=== PATIENT | male | born 1985 | race American Indian/Alaskan Native ===

== ENCOUNTER 2017-06-11 21:14 | Emergency (ER) | payer SELFPAY ==
[2017-06-11 21:53] VITALS: BP 125/77; PULSE 85; RESP 20; TEMP 98.2; O2SAT 97
--- NOTE | 2017-06-11 22:43 | C.PDOC ---
History Of Present Illness 32 yo male w/o significant PMHx come in for evaluation of Left shoulder and upper back pain gradually developed for past few hours after sustained mechanical fall at work. Pt sts, slipped and fell , landed onto left side. Pt describes apin as localized over left superior shoulder extends down to Left upper back. Otherwise, pt denies head injury, LOC, syncope, headache, dizziness , CP, SOB, dyspnea, diaphoresis, abd. pain, N/V, denies deformity, weakness, sensory or vascular deficits to B/L UEs and LEs. Ambulate to ED for evaluation, not in any apparent distress. Time Seen by Provider: 06/11/17 21:44 Chief Complaint (Nursing): Back Pain History Per: Patient Onset/Duration Of Symptoms: Gradual Past Medical History Reviewed: Historical Data, Nursing Documentation, Vital Signs Vital Signs: Last Vital Signs Temp 98.2 F 06/11/17 21:50 Pulse 85 06/11/17 21:50 Resp 20 06/11/17 21:50 BP 125/77 06/11/17 21:50 Pulse Ox 97 06/11/17 23:07 - Medical History PMH: No Chronic Diseases, Chronic Pain Surgical History: No Surg Hx Family History: States: Unknown Family Hx - Social History Hx Tobacco Use: Yes Hx Alcohol Use: No Hx Substance Use: No - Immunization History Hx Tetanus Toxoid Vaccination: No Hx Influenza Vaccination: No Hx Pneumococcal Vaccination: No Review Of Systems Except As Marked, All Systems Reviewed And Found Negative. Constitutional: Negative for: Fever, Chills Eyes: Negative for: Vision Change ENT: Negative for: Ear Discharge, Nose Discharge, Throat Pain Cardiovascular: Negative for: Chest Pain Respiratory: Negative for: Shortness of Breath Gastrointestinal: Negative for: Nausea, Vomiting, Abdominal Pain Genitourinary: Negative for: Incontinence Musculoskeletal: Positive for: Shoulder Pain, Back Pain Skin: Negative for: Bruising Neurological: Negative for: Weakness, Numbness, Altered Mental Status, Headache , Dizziness Physical Exam - Physical Exam Appears: Well, Non-toxic, No Acute Distress Skin: Normal Color, Warm, Dry, No Rash, No Ecchymosis Head: Atraumatic, Normacephalic Eye(s): bilateral: PERRL Nose: No Flaring, No Deformity, No Tenderness Oral Mucosa: Moist, No Drooling Neck: Normal ROM, Trachea Midline, No Midline Cervical Tenderness, No Paracervical Tenderness, No Step Off Deformity, Supple Chest: Symmetrical, No Deformity, No Tenderness Respiratory: No Decreased Breath Sounds, No Accessory Muscle Use, No Stridor, No Wheezing Back: No Vertebral Tenderness, No Paraspinal Tenderness, Other (mild tenderness overlying Left periscapular area. No ecchymoses, no palpable eformity.) Extremity: Normal ROM (Left shoulder), Tenderness (superior aspect Left shoulder ), No Deformity, No Swelling Neurological/Psych: Oriented x3, Normal Speech, Normal Motor, Normal Sensation, Normal Reflexes ED Course And Treatment O2 Sat by Pulse Oximetry: 97 Pulse Ox Interpretation: Normal Progress Note: On re-evaluation, pt is afebrile, hemodynamicaly stable. Non- toxic. AMbulatoyr in ED with stable gait. Head: AT/NC, Neck: Supple, (-) midline tenderness, (-) step offs. ENT: no acute findings. Lungs: CTA B/L, BS equal B/L. Back: mild Left periscapular tenderness, no palpable deformity or ecchymoses. Left shoulder: exam c/w shoulder sprain, no defomrity, no neurovascular deficits. neuorlogical intact. Imaging review and appears normal. Pt advised. REf. to F/u with PMD, Ortho in 2-3 days for re-eavl. return if any new changes. Disposition Counseled Patient/Family Regarding: Studies Performed, Diagnosis, Need For Followup, Rx Given - Disposition Referrals: [facility] [Outside] Disposition: HOME/ ROUTINE Disposition Time: 23:01 Condition: STABLE Additional Instructions: LIGHT DUTY TO LEFT SHOULDER FOR 1 WEEK TAKE PAIN MEDICATION PRESCRIBED FOLLOW UP WITH PMD AND ORTHOPEDIST NEED IN 2-3 DAYS FOR RE-EVALUATION. RETURN TO ED IF ANY NEW CHANGES. Prescriptions: Ibuprofen [Motrin Tab] 600 mg PO Q6 #20 tab Methocarbamol [Robaxin] 500 mg PO TID #14 tab Instructions: Shoulder Pain (ED), Thoracic Back Strain (ED) Forms: [facility] (Angolan), Work Excuse - Clinical Impression Clinical Impression: Shoulder sprain, Upper back strain
--- NOTE | 2017-06-12 08:44 | RAD ---
PROCEDURE: Radiographs of the Chest and Left Ribs. HISTORY: injury COMPARISON: None available. TECHNIQUE: Frontal radiograph of the chest and multiple oblique radiographs of the left ribs were obtained. FINDINGS: LEFT RIBS: No fracture or focal lesion visualized. LUNGS: Clear. PLEURA: No pneumothorax or pleural fluid. CARDIOVASCULAR: Normal sized heart. No pulmonary vascular congestion. OTHER FINDINGS: None. IMPRESSION: Unremarkable radiographs of the chest and left ribs. No left rib fracture.
--- NOTE | 2017-06-12 08:44 | RAD ---
PROCEDURE: Radiographs of the Left Shoulder HISTORY: injury COMPARISON: No prior. FINDINGS: BONES: Patchy sclerotic benign radiolucent changes humeral head -non specific. No suspicious lytic lesion. No fracture. JOINTS: . Glenohumeral and acromioclavicular minimal osteoarthritis. SOFT TISSUES: Normal. OTHER FINDINGS: None. IMPRESSION: Minimal shoulder arthrosis. No fracture or dislocation
== END 2017-06-11 23:44 | disposition home or self-care (01) ==
LOC: C.ER 21:14
DX: S43.402A Unspecified sprain of left shoulder joint, initial encounter (principal); S29.012A Strain of muscle and tendon of back wall of thorax, initial encounter; W01.0XXA Fall on same level from slipping, tripping and stumbling without subsequent striking against object, initial encounter; Y92.89 Other specified places as the place of occurrence of the external cause; Y99.8 Other external cause status

== ENCOUNTER 2018-07-09 16:30 | Emergency (ER) | payer OTHER ==
[2018-07-09 16:44] VITALS: BP 146/89; PULSE 87; TEMP 98.5; O2SAT 100
--- NOTE | 2018-07-09 17:25 | RAD ---
PROCEDURE: Right foot radiographs. HISTORY: pain s/p crush injury COMPARISON: None available. FINDINGS: BONES: No acute displaced fracture. JOINTS: No dislocation. SOFT TISSUES: Soft tissue swelling. No evidence of radiopaque foreign body. OTHER FINDINGS: None. IMPRESSION: Soft tissue swelling. No acute displaced fracture, dislocation, or significant joint effusion identified. If symptoms persist, or if there is continued clinical concern, x-ray follow-up in 7-10 days should be considered.
[2018-07-09 17:52] VITALS: RESP 16
--- NOTE | 2018-07-09 18:07 | C.PDOC ---
History Of Present Illness 33 y/o male presents to the ER complaining of right foot pain which began after a pallet of food fell on his foot. Patient states that he is able to ambulate. Denies having weakness, numbness, and other injuries. Chief Complaint (Nursing): Lower Extremity Problem/Injury History Per: Patient History/Exam Limitations: no limitations Onset/Duration Of Symptoms: Hrs Current Symptoms Are (Timing): Still Present Severity: Moderate Past Medical History Reviewed: Historical Data, Nursing Documentation, Vital Signs Vital Signs: Last Vital Signs Temp 98.5 F 07/09/18 16:41 Pulse 87 07/09/18 16:41 Resp 16 07/09/18 17:51 BP 146/89 07/09/18 16:41 Pulse Ox 100 07/09/18 16:41 - Medical History PMH: No Chronic Diseases, Chronic Pain Other Surgeries: Hx of surgeries Family History: States: No Known Family Hx - Social History Hx Tobacco Use: Yes Hx Alcohol Use: No Hx Substance Use: No - Immunization History Hx Tetanus Toxoid Vaccination: No Hx Influenza Vaccination: No Hx Pneumococcal Vaccination: No Review Of Systems Except As Marked, All Systems Reviewed And Found Negative. Musculoskeletal: Positive for: Foot Pain (right foot pain) Neurological: Negative for: Weakness, Numbness Physical Exam - Physical Exam Appears: Non-toxic, No Acute Distress Skin: Normal Color, Warm, Dry Head: Atraumatic, Normacephalic Eye(s): bilateral: Normal Inspection Nose: Normal Oral Mucosa: Moist Neck: Supple Chest: Symmetrical Extremity: Normal ROM, Tenderness (mild tenderness to dorsal aspect of right foot), Capillary Refill (< 2 seconds), No Swelling Pulses: Right Dorsalis Pedis: Normal Neurological/Psych: Oriented x3, Normal Speech ED Course And Treatment O2 Sat by Pulse Oximetry: 100 (RA) Pulse Ox Interpretation: Normal - Other Rad X-Ray-Right Foot X-Ray: Viewed By Me, Read By Radiologist Interpretation: PROCEDURE: Right foot radiographs. HISTORY: pain s/p crush injury. COMPARISON: None available. FINDINGS: BONES: No acute displaced fracture. JOINTS: No dislocation. SOFT TISSUES: Soft tissue swelling. No evidence of radiopaque foreign body. OTHER FINDINGS: None. IMPRESSION: Soft tissue swelling. No acute displaced fracture, dislocation, or significant joint effusion identified. If symptoms persist, or if there is continued clinical concern, x-ray follow-up in 7-10 days should be considered. Medical Decision Making Medical Decision Making: Plan: --Motrin PO --X-Ray-Right Foot Disposition - Disposition Referrals: Britany Mancini, [Non-Staff] - Disposition: HOME/ ROUTINE Disposition Time: 17:40 Condition: GOOD Additional Instructions: FARHAT QUILES, thank you for letting us take care of you today. The emergency medical care you received today was directed at your acute symptoms. If you were prescribed any medication, please fill it and take as directed. It may take several days for your symptoms to resolve. Return to the Emergency Department if your symptoms worsen, do not improve, or if you have any other problems. Please contact your doctor or call one of the physicians/clinics you have been referred to that are listed on the Patient Visit Information form that is included in your discharge packet. Bring any paperwork you were given at discharge with you along with any medications you are taking to your follow up visit. Our treatment cannot replace ongoing medical care by a primary care provider outside of the emergency department. Thank you for allowing the [employer] [facility] team to be part of your care today. Follow up with your primary care doctor in 5-7 days if symptoms persist. Prescriptions: Ibuprofen [Motrin] 600 mg PO Q6 PRN #20 tab PRN Reason: Pain, Moderate (4-7) Instructions: Contusion (DC) Forms: [employer] (Lao), Work Excuse - Clinical Impression Clinical Impression: Foot contusion - Scribe Statement The provider has reviewed the documentation as recorded by the Elton Smyth Provider Attestation: All medical record entries made by the Eleazaribrocío were at my direction and personally dictated by me. I have reviewed the chart and agree that the record accurately reflects my personal performance of the history, physical exam, medical decision making, and the department course for this patient. I have also personally directed, reviewed, and agree with the discharge instructions and disposition.
== END 2018-07-09 17:51 | disposition home or self-care (01) ==
LOC: C.ER 16:30
DX: S90.31XA Contusion of right foot, initial encounter (principal); W22.8XXA Striking against or struck by other objects, initial encounter